=== PATIENT | female | born 1995 ===

== ENCOUNTER 2023-12-20 19:16 | Emergency (ER) | payer MEDICAID, SELFPAY ==
--- NOTE | ~2023-12-20 | US_ITS ---
EXAMINATION: US ABDOMEN LIMITED CLINICAL INFORMATION: Right upper quadrant pain. Nausea/vomiting/diarrhea. Question cholelithiasis.. COMPARISON: None available. TECHNIQUE: Real-time imaging of the right upper quadrant abdominal viscera. FINDINGS: PANCREAS: Pancreatic tail is obscured by bowel gas. Remainder of the pancreas is normal in appearance. LIVER: Normal. The liver is normal in size. The liver contour is normal. Parenchymal echogenicity is normal. No focal hepatic lesion. There is no intrahepatic biliary duct dilatation seen. GALLBLADDER: There is a 1.8 cm gallstone within the neck of the gallbladder. The gallbladder wall is normal in thickness. Gallbladder is contracted. No pericholecystic fluid. Patient is tender in the region of the gallbladder. COMMON BILE DUCT: Normal in caliber measuring 0.3 cm in diameter. RIGHT KIDNEY: Normal. No hydronephrosis. No renal calculi or focal parenchymal lesions. The kidney measures 10.6 cm in maximum dimension. FREE FLUID: None. US/US abdomen limited IMPRESSION: Cholelithiasis. The patient is tender in the region of the gallbladder, though there is no gallbladder wall thickening or pericholecystic fluid to suggest acute cholecystitis.
[2023-12-20 19:52] VITALS: BP 127/75; PULSE 97; RESP 20; TEMP 36.8; O2SAT 98; BMI 37.1
--- NOTE | 2023-12-20 19:52 | ED.ABDPAIN ---
HPI - Abdominal Pain General Chief Complaint: Abdominal Pain Stated Complaint: abdominal pain Time Seen by Provider: 12/20/23 21:37 Source: patient Mode of arrival: ambulatory Limitations: no limitations History of Present Illness ED Provider: dusty RAMÍREZ narrative: Patient otherwise healthy complaining of diffuse abdominal pain with diarrhea since yesterday after arrival to the ER patient's pain in right upper abdomen which she had off and on for last several weeks no fever no chills no urinary complaints Related Data Previous Rx's ?Medication ?Instructions ?Recorded ondansetron 4 mg disintegrating 4 mg PO Q6-8H PRN nausea and 12/21/23 tablet vomiting #14 tabs tramadol 50 mg tablet 50 mg PO Q6H PRN pain #20 tabs 12/21/23 Allergies Allergy/AdvReac Type Severity Reaction Status Date / Time amoxicillin Allergy Itching Verified 12/20/23 19:56 Sulfa (Sulfonamide Allergy Itching Verified 12/20/23 19:56 Antibiotics) Review of Systems Review of Systems Yes all other systems are reviewed and are negative PMFSH Social History Social History Smoked in Last 30 Days: No Advance Directives: No Advance Directives Information Provided: No Physical Exam ED Vital Signs: Vital Signs - 24 hr 12/20/23 19:52 12/20/23 23:35 Temperature 98.2 F 98.9 F Pulse Rate 97 90 Respiratory Rate 20 18 Blood Pressure 127/75 129/77 Pulse Oximetry 98 100 Oxygen Delivery Method Room Air Room Air BMI result Body Mass Index 37.1 Appearance: Alert. Oriented X3. No acute distress. Eyes: PERRLA, No Nystagmus ENT: Pharynx normal. Oral Mucosa moist Neck: Normal inspection. Neck supple. CVS: Normal heart rate and rhythm. Pulses normal. Respiratory: No respiratory distress. Equal air entry bilateral, no wheezing/rales/rhonchi Abdomen: Soft and tender right upper quadrant with guarding no rebound tenderness Bowel sounds are present, no mass palpable, no CVA tenderness Skin: Skin warm and dry. Normal skin color. Normal skin turgor. Extremities: No lower extremity edema. No calf tenderness Neuro: Oriented X 3. No motor deficit. No sensory deficit.No cerebellar signs , cranial nerves II-XII intact Course Course Course Narrative: This is a Rapid Medical Exam performed in triage by Delmy Lock PA-C. Full HPI, ROS and PE to be performed by primary ED provider. 28 year-old F w/ PMHx presenting to the ED c/o abdominal pain, nausea, belly hard, & black watery diarrhea x yesterday. Admits to taking Pepto, thinks black stools may have started after taking med. denies vomiting, travel, bad food exposure. denies taking AC PE: abdomen soft +RLQ/RUQ ttp Plan: Labs, UA, Occult stool/stool studies Medical Decision Making Medical Decision Making [facility] Narrative: Patient with uncomplicated cholelithiasis no signs of cholecystitis patient feeling better after pain medication advised to follow with surgeon Differential Diagnosis Differential Diagnoses: The differential diagnosis associated with the presentation includes Lab Data [facility] Lab Attestation statement: I reviewed the patient's lab results. 12/20/23 20:07 12/20/23 20:07 Labs: Lab Results 12/20/23 12/20/23 12/21/23 Range/Units 20:07 23:11 02:12 WBC 11.5 H (4.8-10.8) X10*3/uL RBC 5.22 (4.20-5.50) X10*6/uL Hgb 14.2 (12.0-16.0) g/dl Hct 43.7 (37.0-47.0) % MCV 83.7 (80.0-98.0) fL MCH 27.2 (27.0-33.0) pg MCHC 32.5 (31.0-35.0) g/dl RDW 13.1 (11.0-16.0) % Plt Count 353 (160-400) X10*3/uL MPV 9.4 (9.4-12.3) fL Immature Gran % (Auto) 0.3 (0.0-0.4) % Neut % (Auto) 68.7 (45-73) % Lymph % (Auto) 18.6 L (20-40) % [place] % (Auto) 8.7 (2-11) % Eos % (Auto) 3.3 (0-4) % Baso % (Auto) 0.4 (0-2) % Lymph # (Auto) 2.2 (1.2-4.9) X10*3/uL [place] # (Auto) 1.0 (0.1-1.2) X10*3/uL Eos # (Auto) 0.4 (0.0-0.4) X10*3/uL Baso # (Auto) 0.1 (0.0-0.2) X10*3/uL Abs Immat Gran (auto) 0.03 (0.00-0.03) X10*3/uL Absolute Neuts (auto) 7.9 (2.0-8.3) x10*3/uL Absolute Nucleated RBC 0.000 (0.0-0.012) X10*3/uL Nucleated RBC % (auto) 0.0 (0.0-0.2) /100WBC PT 11.3 (11.1-13.3) SEC INR 0.9 (0.9-1.1) Sodium 142 (135-145) mmol/L Potassium 4.1 (3.3-5.1) mmol/L Chloride 108 (96-108) mmol/L Carbon Dioxide 22 (22-29) mmol/L Anion Gap 16 (12-20) BUN 7 L (9-16) mg/dL Creatinine 0.77 (0.5-1.4) mg/dL Estim Creat Clear Calc 106.0 Estimated GFR > 60 Random Glucose 97 (60-115) mg/dL Calcium 9.3 (8.4-10.2) mg/dL Magnesium 1.9 (1.6-2.6) mg/dL Total Bilirubin 0.3 (0.0-1.0) mg/dL Direct Bilirubin 0.1 (0.0-0.5) mg/dL AST 13 (5-31) U/L ALT 20 (0-31) U/L Alkaline Phosphatase 81 (39-117) U/L Total Protein 7.2 (6.5-8.0) g/dL Albumin 4.3 (3.5-5.0) g/dL Lipase 31 (8-78) U/L Urine Color Yellow Urine Appearance Clear Urine pH 5.5 (5.0-9.0) Ur Specific Chambers 1.025 (1.005-1.025) Urine Protein Negative (Neg-Trace) mg/dL Urine Glucose (UA) Negative (Negative) mg/dL Urine Ketones Negative (Negative) mg/dL Urine Blood Trace H (Negative) Urine Nitrite Negative (Negative) Ur Leukocyte Esterase Negative (Negative) Urine RBC 0-2 (0-2) /HPF Urine WBC 0-5 (0-5) /HPF Ur Squamous Epith Cells 6-10 (0-2) /HPF Urine Bacteria 1+ (None Seen) Hyaline Casts 0-2 (0-2) /LPF Urine Test NEGATIVE (NEGATIVE) Independent Interpretation I performed an independent interpretation of an: Ultrasound Radiology Impression Discussion of test interpretation with radiology: I have reviewed the radiologist's reading. Radiologist Impression: [address] [address] Ultrasound Report Signed Patient: Manish Matias MR#: [id number] : 1995 Acct:[id number] Age/Sex: 28 / F ADM Date: 12/20/23 Loc: .ED Attending Dr: Ordering Physician: Shaun Valencia MD Date of Service: 12/20/23 Procedure(s): US abdomen limited Accession Number(s): [id number] cc: Physician,Unknown ; Shaun Valencia MD~ EXAMINATION: US ABDOMEN LIMITED CLINICAL INFORMATION: Right upper quadrant pain. Nausea/vomiting/diarrhea. Question cholelithiasis.. COMPARISON: None available. TECHNIQUE: Real-time imaging of the right upper quadrant abdominal viscera. FINDINGS: PANCREAS: Pancreatic tail is obscured by bowel gas. Remainder of the pancreas is normal in appearance. LIVER: Normal. The liver is normal in size. The liver contour is normal. Parenchymal echogenicity is normal. No focal hepatic lesion. There is no intrahepatic biliary duct dilatation seen. GALLBLADDER: There is a 1.8 cm gallstone within the neck of the gallbladder. The gallbladder wall is normal in thickness. Gallbladder is contracted. No pericholecystic fluid. Patient is tender in the region of the gallbladder. COMMON BILE DUCT: Normal in caliber measuring 0.3 cm in diameter. RIGHT KIDNEY: Normal. No hydronephrosis. No renal calculi or focal parenchymal lesions. The kidney measures 10.6 cm in maximum dimension. FREE FLUID: None. US/US abdomen limited IMPRESSION: Cholelithiasis. The patient is tender in the region of the gallbladder, though there is no gallbladder wall thickening or pericholecystic fluid to suggest acute cholecystitis. Medications Administered Discontinued Medications Generic Name Dose Route Start Last Admin Trade Name Freq PRN Reason Stop Dose Admin Sodium Chloride 1,000 mls @ 999 mls/hr 12/20/23 23:23 12/21/23 01:00 Ns IV 12/21/23 00:23 Infused .Q1H1M ONE Infusion Ketorolac Tromethamine 30 mg 12/21/23 01:31 12/21/23 01:34 Ketorolac Tromethamine 30 Mg/Ml Vial IVPUSH 12/21/23 01:32 30 mg ONCE ONE Administration Loperamide HCl 2 mg 12/20/23 23:24 12/20/23 23:40 Loperamide Hcl 2 Mg Capsule PO 12/20/23 23:25 2 mg ONCE ONE Administration Ondansetron HCl 4 mg 12/20/23 23:24 12/20/23 23:40 Ondansetron Hcl 4 Mg/2 Ml Vial IVPUSH 12/20/23 23:25 4 mg ONCE ONE Administration Discharge Plan Discharge Clinical Impression: Gastroenteritis, Gallstones Patient Disposition: Home, Self-Care Instructions: Gallstones (ED), Acute Diarrhea (ED) Additional Instructions: Drink plenty of fluids Avoid fried food Follow with surgeon for gallstones Report to ER if worsening of the pain Medicine for nausea and pain as prescribed Prescriptions: New tramadol 50 mg tablet 50 mg PO Q6H PRN (Reason: pain) Qty: 20 0RF ondansetron 4 mg tablet,disintegrating 4 mg PO Q6-8H PRN (Reason: nausea and vomiting) Qty: 14 0RF Referrals: Joss Luis MD [Physician] - 1 week Interventions: ED Discharge Assessment Last Done: 12/21/23 03:59 Discharge Date/Time: 12/21/23 04:01 Print Language: Austrian
[2023-12-20 20:11] LABS: MANUAL DIFF FLAG NO
[2023-12-20 20:17] LABS: Basophils Absolute Auto 0.1 X10*3/uL (0.0-0.2); Basophils Percent Auto 0.4 % (0-2); Eosinophils Absolute Auto 0.4 X10*3/uL (0.0-0.4); Eosinophils Percent Auto 3.3 % (0-4); Hematocrit 43.7 % (37.0-47.0); Hemoglobin 14.2 g/dl (12.0-16.0); Imm Gran Abs Auto 0.03 X10*3/uL (0.00-0.03); Imm Gran Pct Auto 0.3 % (0.0-0.4); Lymphocytes Absolute Auto 2.2 X10*3/uL (1.2-4.9); Lymphocytes Percent Auto 18.6 % (20-40); Mean Corpuscular HGB Conc 32.5 g/dl (31.0-35.0); Mean Corpuscular Hemoglobin 27.2 pg (27.0-33.0); Mean Corpuscular Volume 83.7 fL (80.0-98.0); Mean Platelet Volume 9.4 fL (9.4-12.3); Monocytes Percent Auto 8.7 % (2-11); Neutrophils Absolute Auto 7.9 x10*3/uL (2.0-8.3); Neutrophils Percent Auto 68.7 % (45-73); Platelet Count 353 X10*3/uL (160-400); Red Blood Count 5.22 X10*6/uL (4.20-5.50); Red Cell Distribution Width 13.1 % (11.0-16.0); White Blood Count 11.5 X10*3/uL (4.8-10.8)
[2023-12-20 20:21] LABS: INTERNATIONAL NORM RATIO 0.9 (0.9-1.1); Prothrombin Time 11.3 SEC (11.1-13.3)
[2023-12-20 20:32] LABS: Alanine Aminotransferase 20 U/L (0-31); Albumin Level 4.3 g/dL (3.5-5.0); Alkaline Phosphatase 81 U/L (39-117); Anion Gap 16 (12-20); Aspartate Amino Transferase 13 U/L (5-31); Bilirubin Direct 0.1 mg/dL (0.0-0.5); Bilirubin Total 0.3 mg/dL (0.0-1.0); Blood Urea Nitrogen 7 mg/dL (9-16); Calcium 9.3 mg/dL (8.4-10.2); Carbon Dioxide 22 mmol/L (22-29); Chloride 108 mmol/L (96-108); Estimated Glomerular Filt Rate > 60; Glucose Random 97 mg/dL (60-115); Lipase 31 U/L (8-78); Magnesium 1.9 mg/dL (1.6-2.6); Potassium 4.1 mmol/L (3.3-5.1); Sodium 142 mmol/L (135-145); Total Protein 7.2 g/dL (6.5-8.0)
[2023-12-20 23:19] LABS: UPreg QC Valid YES; Urine Pregnancy NEGATIVE (NEGATIVE)
[2023-12-20 23:35] VITALS: BP 129/77; PULSE 90; RESP 18; TEMP 37.2; O2SAT 100
[2023-12-20] MEDS: ondansetron HCL 4 MG/2 ML VIAL IVPUSH (23:40)
[2023-12-20] MEDS: Loperamide HCl 2 MG CAPSULE PO (23:40)
[2023-12-20] MEDS: 0.9 % Sodium Chloride 1,000 ML 999 ML IV (23:40)
--- NOTE | 2023-12-20 23:45 | PC.NURSE ---
Pt medicated per jul. Plan of care ongoing.
--- NOTE | 2023-12-21 00:17 | PC.NURSE ---
Pt back from CT, attached to NS Pt has family at bedside. Plan of care ongoing.
[2023-12-21] MEDS: Ketorolac Tromethamine 30 MG/ML VIAL IVPUSH (01:34)
--- NOTE | 2023-12-21 01:37 | PC.NURSE ---
Pt medicated per jul. Pts family at bedside. Plan of care ongoing.
[2023-12-21 02:02] VITALS: BP 118/42; PULSE 82; RESP 19; TEMP 36.8; O2SAT 99
[2023-12-21 02:18] LABS: Appearance Urine Clear; Color Urine Yellow; Glucose Urine UA Negative (Negative); Leukocyte Esterase Urine Negative (Negative); Nitrite Urine Negative (Negative); PH 5.5 (5.0-9.0); Specific Gravity - Urine 1.025 (1.005-1.025); UMIC TRIGGER UACC YES; Urine Blood Trace (Negative); Urine Ketones Negative (Negative); Urine Protein Negative (Neg-Trace)
[2023-12-21 02:57] LABS: Bacteria Urine 1+ (None Seen); Hyaline Casts Urine 0-2 /LPF (0-2); RBC Urine 0-2 /HPF (0-2); WBC Urine 0-5 /HPF (0-5)
[2023-12-21 03:02] VITALS: RESP 12
[2023-12-21 03:59] VITALS: BP 112/60; PULSE 79; RESP 12; TEMP 36.7; O2SAT 98
== END 2023-12-21 04:01 | disposition home or self-care (01) ==
PROVIDERS: Physician Assistant; Emergency Provider Internal Medicine
DX: K52.9 Noninfective gastroenteritis and colitis, unspecified (principal); K80.20 Calculus of gallbladder without cholecystitis without obstruction
CPT/HCPCS: 36415; 76705; 80048; 80076; 81001; 81025; 83690; 83735; 85025; 85610; 96361; 96374; 96375; 99284; 99285; J1885; J2405

== ENCOUNTER 2023-12-24 10:23 | Outpatient (AMB) | payer MEDICAID, SELFPAY ==
--- NOTE | 2023-12-24 10:35 | A.OFFVIS_ITS ---
Vital Signs 3 12/24/23 10:39 Height 5 ft Weight 181 lb 8 oz BMI 35.4 BP 126/76 Blood Pressure Location Lt brachial Position Sitting Pulse 78 Intake Visit Reasons: gallstones Intake Note: Patient is seen in office for ER follow up visit, following gallstones. Pt c/o: admits to RUQ pain, diarrhea and black stool, unable to eat due to nausea and vomit, feels pain radiates down the leg ER:12/21/23 Physical Geographer Required: No Accompanied by: Family/Other Allergies amoxicillin Allergy (Verified 12/24/23 10:37) Itching Sulfa (Sulfonamide Antibiotics) Allergy (Verified 12/24/23 10:37) Itching Medication List - Last Reconciled 12/24/23 by Joss Luis MD ondansetron 4 mg PO Q6-8H PRN tramadol 50 mg PO Q6H PRN HPI Comments Details: 28-year-old female patient presenting with complaints of right upper quadrant abdominal pain. The pain is associated with nausea and vomiting and began proximally 1 week ago. She reports all food seems to increase the pain in his only been able to keep down liquids without increasing the pain. She denies fever or chills. She presented to the emergency department and was initially thought to have gastroenteritis however subsequent ultrasound of the abdomen revealed a large gallstone at the neck of the gallbladder with a positive sonographic Cole sign. She presents today to discuss possible cholecystectomy. [facility] [place] Surgical History Hx of section Hx of tonsillectomy Social History Alcohol intake: current Alcohol intake frequency: holidays/special occasions only Patient Tobacco Use Status: Former Tobacco user Review of Systems Const All systems reviewed & are unremarkable except as noted in HPI and below Denies chills, Denies fever(s), Denies headache(s), Denies poor appetite and Denies weakness ENT Denies headache(s) Card Denies chest pain, Denies irregular heart rhythm, Denies palpitations and Denies dyspnea Resp Denies cough, Denies excessive phlegm production and Denies dyspnea GI Reports abdominal pain, Denies bloating, Denies change in bowel habits, Denies constipation, Denies heartburn, Denies diarrhea, Reports nausea and Reports vomiting Denies urinary frequency Musc Denies back pain, Denies muscle weakness and Denies numbness Skin/Breast Denies changing lesions and Denies unusual bruising Neuro Denies headache(s), Denies numbness, Denies paresthesias and Denies weakness Psych Denies anxiety and Denies depression Endo Denies palpitations John/Lymph Denies lymphadenopathy Physical Exam Vital Signs: Last Vital Signs Pulse 78 12/24/23 10:39 BP 126/76 12/24/23 10:39 BMI result Body Mass Index 35.4 Const General: cooperative and no acute distress Nutritional Appearance: well nourished Orientation/consciousness: patient oriented x3 Limitations: no limitations HEENT Head: Yes normocephalic and Yes atraumatic Ears: hearing grossly normal bilaterally Resp Effort & Inspection: normal respiratory effort, no audible wheezes, no cough and no respiratory distress Cardio Jugular venous distension: no JVD GI Inspection: Yes normal to inspection Palpation (GI): Soft to palpation, Tenderness to palpation present (GI) in the RUQ and Cole's sign positive, no guarding and not rigid Percussion: Yes normal to percussion Auscultation: normal bowel sounds Rectal Exam - Female: deferred Skin Other: Warm, dry, no rash Neuro General: patient oriented x3 Extrem General: Yes no clubbing, cyanosis or edema Results Reviewed Results Reviewed: ultrasound abdomen: Assessment & Plan Assessment & Plan (1) Symptomatic cholelithiasis: Code(s): K80.20 - Calculus of gallbladder without cholecystitis without obstruction Category: Medical Plan 28-year-old female patient presenting with complaints of abdominal pain in the right upper quadrant associated with oral intake. The pain is associated with nausea and vomiting. Workup in the emergency department revealed a large gallstone at the neck of the gallbladder without evidence of wall thickening or pericholecystic fluid. There was tenderness to palpation of the gallbladder suggestive of sonographic Cole sign. Since her discharge from the emergency department she continues to have pain with eating. Examination today reveals tenderness in the right upper quadrant with a positive Cole sign. I recommended a laparoscopic or possible open cholecystectomy and after discussion of the procedure, risks, and alternatives, she consents to the procedure. She will be scheduled as a short-stay surgery at her earliest convenience. Coding Level of Care Code New Pt Level 4 (19262) Diagnoses Symptomatic cholelithiasis K80.20
[2023-12-24 10:39] VITALS: BP 126/76; PULSE 78; BMI 35.4
== END 2023-12-24 10:54 | disposition home or self-care (01) ==
PROVIDERS: Visit Provider Surgery
DX: K80.20 Calculus of gallbladder without cholecystitis without obstruction (principal)
CPT/HCPCS: 99204

== ENCOUNTER → 2023-12-24 10:23 | Outpatient (BNVA) | payer MEDICAID, SELFPAY | PROVIDERS: Visit Provider Surgery | DX: K80.20 Calculus of gallbladder without cholecystitis without obstruction (principal) | CPT/HCPCS: 99202 ==

== ENCOUNTER 2024-01-08 10:06 | Day surgery (SDC) | payer MEDICAID, SELFPAY ==
[2024-01-03 13:23] VITALS: BMI 35.5
--- NOTE | 2024-01-03 14:07 | HO.ANESPROP2 ---
HPI - Anesthesia Eval Consult details Narrative: 28yo F for Cholecystectomy Laparoscopic,possible open PMFSH Active Problems Active Problems: All Active Problems Symptomatic cholelithiasis (Acute) Past Medical History Medical History (Updated 01/03/24 @ 13:22 by Tri Hutchinson RN) Symptomatic cholelithiasis Surgical History Surgical History Hx of section Hx of tonsillectomy Social History Social History Alcohol intake: current Alcohol intake frequency: holidays/special occasions only Patient Tobacco Use Status: Former Tobacco user Meds Allergies Allergy/AdvReac Type Severity Reaction Status Date / Time amoxicillin Allergy Intermediate Itching Verified 01/03/24 13:22 Sulfa (Sulfonamide Allergy Intermediate Itching Verified 01/03/24 13:22 Antibiotics) Exam Height,Weight and Vital Signs: Height 5 ft Weight 82.554 kg Pertinent Lab Results Pertinent Lab Results: Laboratory Tests 12/20/23 20:07 WBC 11.5 H Hgb 14.2 Hct 43.7 Plt Count 353 Sodium 142 Potassium 4.1 Chloride 108 Carbon Dioxide 22 BUN 7 L Creatinine 0.77 Assessment and Plan Assessment Anesthesia Assessment: Chart Reviewed
[2024-01-08] VITALS (14 sets, daily range): BP systolic 115–141; BP diastolic 54–89; PULSE 76–109; RESP 14–19; TEMP 36.3–36.4; O2SAT 96–100; BMI 35.4
[2024-01-08] MEDS: Lactated Ringers 1,000 ML 100 ML IVCONT (11:44)
[2024-01-08] MEDS: Acetaminophen 1,000 MG/100 ML PIGGYBACK 400 MG IV (14:08)
--- NOTE | 2024-01-08 14:22 | PC.NURSE ---
medciated for 11/12 headache.
--- NOTE | 2024-01-08 14:30 | PC.NURSE ---
decreased headache /10.
--- NOTE | 2024-01-08 16:24 | MHC.SHP ---
Pre-Procedural Eval Section A - 24 Hr Update-Section A only Date of Service: 01/08/24 The patient is an INPATIENT: No Changes since office visit: Yes Patient answered all questions; No Cold of Flu in the past 2 weeks, No New Medical Problems and No Changes in Medication The patient has been examined within 24 hours of the surgical procedure. The History & Physical has been completed within 30 days and I have reviewed it.: Yes Section B - Complete if H&P > 30 days Chief Complaint: Calculus of gallbladder without cholecystitis Allergies: Allergies Allergy/AdvReac Type Severity Reaction Status Date / Time amoxicillin Allergy Intermediate Itching Verified 01/03/24 13:22 Sulfa (Sulfonamide Allergy Intermediate Itching Verified 01/03/24 13:22 Antibiotics) Plan Diagnosis/Plan: Unchanged I have reviewed the history and physical and performed a pertinent physical examination on my patient. No changes have occurred unless specified. Time Spent With Patient Time: Total time managing care of this patient today ____ minutes.
--- NOTE | 2024-01-08 17:40 | HO.ANESPROP2 ---
PMF Active Problems Active Problems: All Active Problems Symptomatic cholelithiasis (Acute) Past Medical History Medical History Gestational diabetes Symptomatic cholelithiasis Functional capacity: independent ambulation Patient : No Family History Family history of problems with anesthesia: No Surgical History Surgical History H/O tubal ligation Hx of section Hx of tonsillectomy History of Problems with Anesthesia: No Social History Social History Alcohol intake: current Alcohol intake frequency: holidays/special occasions only Patient Tobacco Use Status: Former Tobacco user Use of substances other than those prescribed or required for medical reasons: No Are you DNR?: No Advance Directives: No Advance Directives Information Provided: Yes Advance Directives on File: No Recently lost weight without trying: No How much weight loss: 2-13 pounds Patient : No Meds Allergies Allergy/AdvReac Type Severity Reaction Status Date / Time amoxicillin Allergy Intermediate Itching Verified 01/03/24 13:22 Sulfa (Sulfonamide Allergy Intermediate Itching Verified 01/03/24 13:22 Antibiotics) Active Medications: Current Medications Lactated Ringer's (Lr) 1,000 mls @ 100 mls/hr IVCONT .Q10H MAXIMINO Last Admin: 01/08/24 11:44 Dose: 100 mls/hr Exam Height,Weight and Vital Signs: Height 5 ft Weight 82.157 kg Last Vital Signs Temp 97.4 F 01/08/24 11:31 Pulse 76 01/08/24 11:31 Resp 16 01/08/24 11:31 BP 141/89 H 01/08/24 11:31 Pulse Ox 100 01/08/24 11:31 O2 Del Method Room Air 01/08/24 11:31 Assessment and Plan Final Anesthetic Review Family History of Problems with Anesthesia: No History of Problems with Anesthesia: No
--- NOTE | 2024-01-08 18:15 | HO.ANESPROP2 ---
[facility] Active Problems Active Problems: All Active Problems Symptomatic cholelithiasis (Acute) Past Medical History Medical History Gestational diabetes Symptomatic cholelithiasis Functional capacity: independent ambulation Family History Family history of problems with anesthesia: No Surgical History Surgical History H/O tubal ligation Hx of section Hx of tonsillectomy History of Problems with Anesthesia: No Social History Social History Alcohol intake: current Alcohol intake frequency: holidays/special occasions only Patient Tobacco Use Status: Former Tobacco user Use of substances other than those prescribed or required for medical reasons: No Are you DNR?: No Advance Directives: No Advance Directives Information Provided: Yes Advance Directives on File: No Recently lost weight without trying: No How much weight loss: 2-13 pounds Patient : No Meds Allergies Allergy/AdvReac Type Severity Reaction Status Date / Time amoxicillin Allergy Intermediate Itching Verified 01/03/24 13:22 Sulfa (Sulfonamide Allergy Intermediate Itching Verified 01/03/24 13:22 Antibiotics) Active Medications: Current Medications Lactated Ringer's (Lr) 1,000 mls @ 100 mls/hr IVCONT .Q10H MAXIMINO Last Admin: 01/08/24 11:44 Dose: 100 mls/hr Exam Height,Weight and Vital Signs: Height 5 ft Weight 82.157 kg Last Vital Signs Temp 97.4 F 01/08/24 11:31 Pulse 76 01/08/24 11:31 Resp 16 01/08/24 11:31 BP 141/89 H 01/08/24 11:31 Pulse Ox 100 01/08/24 11:31 O2 Del Method Room Air 01/08/24 11:31 Airway Mallampati Class: III TM Dist: >3cm Neck ROM: Full Heart: RRR Lungs: CTA Assessment and Plan Assessment Anesthesia Assessment: Anesthesia Plan Discussed Final Anesthetic Review Family History of Problems with Anesthesia: No History of Problems with Anesthesia: No NPO: Yes ASA Class: III Final Preanesthetic Review: Meds/Allgs Chart Reviewed, Consent Obtained/Reviewed and Anes Risks/Benef Reviewed Patient Risk: Intermediate Procedure Risk: Intermediate Anesthetic Plan Anesthetic Plan: GA Disposition: Standard PACU
--- NOTE | 2024-01-08 19:16 | P.CONAN_ITS ---
[facility] Active Problems Active Problems: All Active Problems Symptomatic cholelithiasis (Acute) Past Medical History Medical History Gestational diabetes Symptomatic cholelithiasis Functional capacity: independent ambulation Family History Family history of problems with anesthesia: No Surgical History Surgical History H/O tubal ligation Hx of section Hx of tonsillectomy History of Problems with Anesthesia: No Social History Social History Alcohol intake: current Alcohol intake frequency: holidays/special occasions only Patient Tobacco Use Status: Former Tobacco user Use of substances other than those prescribed or required for medical reasons: No Are you DNR?: No Advance Directives: No Advance Directives Information Provided: Yes Advance Directives on File: No Recently lost weight without trying: No How much weight loss: 2-13 pounds Patient : No Meds Allergies Allergy/AdvReac Type Severity Reaction Status Date / Time amoxicillin Allergy Intermediate Itching Verified 01/03/24 13:22 Sulfa (Sulfonamide Allergy Intermediate Itching Verified 01/03/24 13:22 Antibiotics) Active Medications: Current Medications Droperidol (Droperidol 5 Mg/2 Ml Vial) 0.625 mg IVPUSH ONCE PRN PRN Reason: intractable nausea Stop: 01/09/24 00:16 Fentanyl (Fentanyl Citrate/Pf 100 Mcg/2 Ml Vial) 25 mcg IVPUSH Q5M PRN PRN Reason: Pain, Moderate to Severe (Pain Scale 4-10) Stop: 01/09/24 00:16 Lactated Ringer's (Lr) 1,000 mls @ 100 mls/hr IVCONT .Q10H MAXIMINO Last Admin: 01/08/24 11:44 Dose: 100 mls/hr Ketorolac Tromethamine (Ketorolac Tromethamine 15 Mg/Ml Vial) 15 mg IVPUSH ONCE PRN PRN Reason: Pain, Moderate(Pain Scale 4-6) Stop: 01/09/24 00:16 Exam Height,Weight and Vital Signs: Height 5 ft Weight 82.157 kg Last Vital Signs Temp 97.4 F 01/08/24 11:31 Pulse 76 01/08/24 11:31 Resp 16 01/08/24 11:31 BP 141/89 H 01/08/24 11:31 Pulse Ox 100 01/08/24 11:31 O2 Del Method Room Air 01/08/24 11:31 Assessment and Plan Final Anesthetic Review Family History of Problems with Anesthesia: No History of Problems with Anesthesia: No
--- NOTE | 2024-01-08 19:39 | W.PM.OPN ---
Operative Note Operative Note Date of Service: 01/08/24 Narrative: Preoperative diagnosis: Symptomatic cholelithiasis Postoperative diagnosis: Same Procedure: Laparoscopic cholecystectomy Surgeon: Joss Luis MD Network Project Manager: Anmol Randle MD Anesthesia: General endotracheal Indications for procedure: 29-year-old female patient presenting with complaints of abdominal pain in the right upper quadrant found to have multiple gallstones in the gallbladder. Patient has had multiple episodes of abdominal pain suggestive of symptomatic cholelithiasis. Operative findings: Adhesions to the gallbladder noted suggestive of chronic cholecystitis, a large gallstone is noted at the neck of the gallbladder. Specimen: gallbladder Estimated blood loss: Less than 2 mL Complications: None Procedure details: Patient was brought to the OR and placed in a supine position. After administering general anesthesia the patient's abdomen was prepped with ChloraPrep and draped in a sterile fashion. A surgical time-out was called the consent confirmed. Patient received preoperative antibiotics and Venodyne boots were in place. Local anesthesia consisting of 0.5% Sensorcaine without epinephrine was infiltrated in a periumbilical region. A 5 mm incision was made above the umbilicus in a transverse fashion. The Veress needle was then inserted while elevating abdominal cavity with towel clips. After positive drop test the abdomen was insufflated to a pressure of 15 mm of mercury. The Veress needle was then removed and a 5 mm trocar inserted. The camera was inserted in the abdomen explored. A 12 mm trocar was then placed in the epigastrium. Two 5 mm trocars placed in the right upper quadrant by the patient support assistant. The patient was placed in reverse Trendelenburg positioning and rotated to the left. The gallbladder was grasped with the fundus and retracted cephalad by the patient support assistant. The infundibulum was then grasped and retracted away from the liver bed, also by the patient support assistant. The Dolphin dissected was then used by the surgeon to dissect the peritoneum off the infundibulum to reveal the junction with the cystic duct. Cystic artery was noted slightly medial and posterior to the cystic duct. After obtaining a critical view the cystic duct was doubly clipped and divided. The cystic artery was then doubly clipped and divided. The gallbladder was then dissected off the liver bed using electrocautery with an L hook. Hemostasis was assured all times using the electrocautery. When the gallbladder is completely dissected off the liver bed was placed in an Endo-Catch bag and brought out through the epigastric incision. The gallbladder was sent to pathology for further examination. The abdomen was then re-examined. The liver bed was irrigated and suctioned dry. No bleeding or bile leak could be identified. CO2 was then evacuated and all trocars removed. Fascia was closed at the epigastric incision using a [id number] 0 Polysorb suture. Skin was closed in all incisions using a subcuticular 4 0 Polysorb suture by both the surgeon and patient support assistant. Sterile dressings consisting of Steri-Strips, 2 x 2 gauze, and Tegaderm were then applied. The patient tolerated the procedure well. Sponge instrument and needle counts reported as correct. The patient was transferred to PACU in stable condition.
[2024-01-08] MEDS: fentaNYL citrate/PF 100 MCG/2 ML VIAL 25 MCG IVPUSH ×4 (19:55→20:12)
[2024-01-08] MEDS: Ketorolac Tromethamine 15 MG/ML VIAL IVPUSH (20:16)
[2024-01-08] MEDS: droPERidol 5 MG/2 ML VIAL 0.625 MG IVPUSH (20:25)
== END 2024-01-08 21:16 | disposition home or self-care (01) ==
PROVIDERS: Visit Provider Surgery
PROC: 0FT44ZZ Resection of Gallbladder, Percutaneous Endoscopic Approach (ICD-10-PCS; CPT 47562; principal; 2024-01-08 14:20)
DX: K80.10 Calculus of gallbladder with chronic cholecystitis without obstruction (principal); K82.8 Other specified diseases of gallbladder; Z88.1 Allergy status to other antibiotic agents; Z88.2 Allergy status to sulfonamides; Z87.891 Personal history of nicotine dependence; Z98.890 Other specified postprocedural states
CPT/HCPCS: 47562; 88304; J0131; J1100; J1790; J1836; J1885; J2250; J2405; J2704; J3010

== ENCOUNTER → 2024-01-08 10:06 | Outpatient (BNV) | payer MEDICAID, SELFPAY | PROVIDERS: Visit Provider Surgery | DX: K80.20 Calculus of gallbladder without cholecystitis without obstruction (principal) | CPT/HCPCS: 47562 ==

== ENCOUNTER 2024-01-20 13:09 | Outpatient (AMB) | payer MEDICAID, SELFPAY ==
--- NOTE | 2024-01-20 13:10 | A.OFFVIS_ITS ---
Intake Visit Reasons: S/P lap flynn (Dr. Luis's pt) Intake Note: Patient here s/p lap flynn on 01-08-2024. Reports incisions healilng well. Patient c/o: pain along mid abdomen scarline. Patient no longer taking rx pain meds. Program Director/Traffic Director Required: No Accompanied by: Self / Same As Patient Allergies amoxicillin Allergy (Intermediate, Verified 01/20/24 13:14) Itching Sulfa (Sulfonamide Antibiotics) Allergy (Intermediate, Verified 01/20/24 13:14) Itching HPI Comments Details: Patient presents for follow-up status post laparoscopic cholecystectomy. She is doing well. Starting a diet. Having regular bowel habits although she had some early onset constipation which has resolved. She is increasing her activity level. She has minimal incisional discomfort PFSH Medical History Gestational diabetes Symptomatic cholelithiasis Surgical History (Updated 01/20/24 @ 13:29 by Tho Krishnamurthy MD) Hx laparoscopic cholecystectomy (01/08/24) H/O tubal ligation Hx of section Hx of tonsillectomy Social History Alcohol intake: current Alcohol intake frequency: holidays/special occasions only Patient Tobacco Use Status: Former Tobacco user Physical Exam Eyes Other: Anicteric GI Other: Abdomen is soft. All wounds clean dry and intact healing well Assessment & Plan Assessment & Plan (1) Status post laparoscopic cholecystectomy: Code(s): Z90.49 - Acquired absence of other specified parts of digestive tract Category: Medical Plan Patient was given local instructions, and will otherwise follow-up p.r.n.. All questions answered Coding Level of Care Code Global (62027) Diagnoses Status post laparoscopic cholecystectomy Z90.49
== END 2024-01-20 13:27 | disposition home or self-care (01) ==
PROVIDERS: PCP Physician Assistant; Visit Provider Surgery
DX: Z90.49 Acquired absence of other specified parts of digestive tract (principal)
CPT/HCPCS: 99024

== ENCOUNTER → 2024-01-20 13:09 | Outpatient (BNVA) | payer MEDICAID, SELFPAY | PROVIDERS: PCP Physician Assistant; Visit Provider Surgery | DX: Z09 Encounter for follow-up examination after completed treatment for conditions other than malignant neoplasm (principal); Z90.49 Acquired absence of other specified parts of digestive tract | CPT/HCPCS: 99212 ==